=== PATIENT | female | born 1950 | race Hispanic/Latino ===

== ENCOUNTER → 2018-04-27 | Outpatient (CLI) | payer MEDICARE | END | disposition home or self-care (01) | LOC: RAH 11:06 | PROVIDERS: ATTEND Urology | DX: N13.2 Hydronephrosis with renal and ureteral calculous obstruction (principal); Z90.49 Acquired absence of other specified parts of digestive tract | CPT/HCPCS: 74176 ==

== ENCOUNTER 2018-05-22 08:15 | Day surgery (SDC) | payer MEDICARE ==
[2018-05-20 16:37] LABS: BASOPHILS % (AUTO) 0.8 % (0.0-5.0); EOSINOPHILS % (AUTO) 1.7 % (0.0-8.0); LYMPHOCYTES % (AUTO) 31.9 % (21.0-51.0); MEAN CORPUSCULAR VOLUME 91.3 fL (79-99); MONOCYTES % (AUTO) 6.1 % (3.0-13.0); NEUTROPHILS % (AUTO) 59.5 % (40.0-77.0); NUCLEATED RED BLOOD CELLS 0.1 % (0.0-0.19); PLATELET COUNT (AUTO) 259 K/uL (130-400); RED BLOOD CELL COUNT(AUTO) 4.27 MIL/uL (4.00-5.50); WHITE BLOOD COUNT (AUTO) 8.4 K/uL (4.8-10.8)
[2018-05-20 16:43] LABS: POTASSIUM 4.4 mmol/L (3.5-5.1)
[2018-05-20 16:44] VITALS: BP 121/80
[~2018-05-22] VITALS: Ht 148.6 cm; Wt 70.6 kg
[2018-05-22] VITALS (13 sets, daily range): BP systolic 129–154; BP diastolic 73–103
[~2018-05-22 08:15] MED LIST: CEFTRIAXONE SODIUM 1 GM IVP SCH
[2018-05-22] MEDS ORDERED: LACTATED RINGERS 1000ML 1,000 ML IV ONE (10:31)
[2018-05-22] MEDS ORDERED: CEFTRIAXONE SODIUM 1 GM ONE (10:31)
[2018-05-22] MEDS ORDERED: IOHEXOL-350 50ML VIAL IV ONE (12:52)
[2018-05-22] MEDS ORDERED: LIDOCAINE PF 2% 5ML ABBOJECT ONE (13:04)
[2018-05-22] MEDS ORDERED: PROPOFOL 10 MG/ML 20ML VIAL IV ONE (13:04)
[2018-05-22] MEDS ORDERED: FENTANYL CITRATE PF 50 MCG/1 ML 2ML VIAL ONE ×2 (13:04→13:53)
[2018-05-22] MEDS ORDERED: EPHEDRINE SULFATE 50 MG/ML AMPULE ONE (13:56)
[2018-05-22] MEDS ORDERED: OPIUM/BELLADONNA ALKALOIDS 1 EACH SUPP.RECT RC ONE (14:46)
[2018-05-22] MEDS ORDERED: PHENAZOPYRIDINE HCL 200 MG TABLET ONE (15:50)
== END 2018-05-22 16:47 | disposition home or self-care (01) ==
LOC: DAH 08:15
PROVIDERS: ATTEND Urology
DX: N13.2 Hydronephrosis with renal and ureteral calculous obstruction (principal); M54.5 Low back pain; M41.9 Scoliosis, unspecified; Z98.890 Other specified postprocedural states; G89.29 Other chronic pain; Z88.8 Allergy status to other drugs, medicaments and biological substances; Z79.899 Other long term (current) drug therapy; Z98.51 Tubal ligation status; K21.9 Gastro-esophageal reflux disease without esophagitis
CPT/HCPCS: 36415; 50590; 52332; 74420; 80048; 85025; A4218; A4344; A4358; A4510; A4600; C1769; C2617; J0696; J2001; J2704; J3010 ×2; J3490; J7120 ×2; Q9967

== ENCOUNTER → 2018-07-08 | Outpatient (CLI) | payer MEDICARE | END | disposition home or self-care (01) | LOC: RAH 09:23 | PROVIDERS: ATTEND Urology | DX: N20.0 Calculus of kidney (principal); M47.815 Spondylosis without myelopathy or radiculopathy, thoracolumbar region; Z90.49 Acquired absence of other specified parts of digestive tract | CPT/HCPCS: 74018 ==

== ENCOUNTER → 2022-01-02 | Outpatient (CLI) | payer OTHER | END | disposition home or self-care (01) | LOC: RAH 13:53 | PROVIDERS: ATTEND Internal Medicine | DX: S09.90XA Unspecified injury of head, initial encounter (principal); G31.9 Degenerative disease of nervous system, unspecified; R55 Syncope and collapse; X58.XXXA Exposure to other specified factors, initial encounter; Y93.89 Activity, other specified; Y92.89 Other specified places as the place of occurrence of the external cause; Y99.8 Other external cause status | CPT/HCPCS: 70450 ==